=== PATIENT | female | born 1995 | race Caucasian/White ===

== ENCOUNTER 2020-02-02 15:25 | Emergency (ER) | payer MEDICARE ==
[~2020-02-02] VITALS: Ht 165.1 cm; Wt 63.5 kg
[2020-02-02] MEDS ORDERED: SODIUM CHLORIDE 0.9% 1000ML 1,000 ML IV ONE (16:23)
[2020-02-02] MEDS ORDERED: SODIUM CHLORIDE FLUSH 10 ML SYR INJ PRN (16:30)
[2020-02-02] MEDS ORDERED: SODIUM CHLORIDE 0.9% 1000ML 1,000 ML ONE (16:47)
--- NOTE | 2020-02-02 17:32 | Emergency Department Note ---
History of Present Illnes History of Present Illness Chief Complaint: typical migraine agarwal History of Present Illness This is a 24 year old female. was doing well prior to this. . 6wks preg by ultrasound Historian: Patient Arrival Mode: Car History limited by: condition of the patient (normal) Cardiovascular Technologist Required: No Onset (how long ago): week(s) (1) Location: generalize Quality: sharp Radiation: Reports non-radiation Severity: severe Onset quality: gradual Duration (how long): week(s) (1) Timing of current episode: constant Progression: unchanged Chronicity: recurrent Relieving factors: none Exacerbating factors: none Associated symptoms: Reports nausea/vomiting Treatments prior to arrival: none Past Medical/Family History Physician Review I have reviewed the patient's past medical and family history. Any updates have been documented here. Past Medical History Recent Fever: No Clinical Suspicion of Infectio: No New/Unexplained Change in Ment: No Past Medical History: None Past Surgical History: None Social History Smoking Cessation: Never Smoker Counseling Performed: No Any Illegal Drug Use: No TB Exposure/Symptoms: No Physically hurt or threatened: No Family History Family history of heart diseas: No Other Any Pre-Existing Lines (PICC,: No Is patient up to date on immun: No Review of Systems Review of Systems Constitutional: Reports no symptoms EENTM: Reports no symptoms Cardiovascular: Reports no symptoms Respiratory: Reports no symptoms Gastrointestinal: Reports as per HPI Genitourinary: Reports no symptoms Musculoskeletal: Reports no symptoms Integumentary: Reports no symptoms Neurological: Reports as per HPI Psychological: Reports no symptoms Endocrine: Reports no symptoms Hematological/Lymphatic: Reports no symptoms Review of other systems: All other systems negative Physical Exam Related Data Allergies: Coded Allergies: No Known Allergies (Unverified , 02/02/20) Vital signs reviewed: Yes Physical Exam CONSTITUTIONAL Constitutional: Present well-developed, Present well-nourished HENT HENT: Present normocephalic, Present atraumatic, Present oropharynx clear/moist, Present nose normal HENT L/R: Present left ext ear normal, Present right ext ear normal EYES Eyes: Reports PERRL, Reports conjunctivae normal NECK Neck: Present ROM normal, Present supple PULMONARY Pulmonary: Present effort normal, Present breath sounds normal CARDIOVASCULAR Cardiovascular: Present regular rhythm, Present heart sounds normal, Present capillary refill normal, Present normal rate GASTROINTESTINAL Abdominal: Present soft, Present nontender, Present bowel sounds normal GENITOURINARY Genitourinary: Present exam deferred SKIN Skin: Present warm, Present dry MUSCULOSKELETAL Musculoskeletal: Present ROM normal NEUROLOGICAL Neurological: Present alert, Present oriented x 3, Present no gross motor or sensory deficits, Present other ([id number] normal) PSYCHOLOGICAL Psychological: Present mood/affect normal, Present judgement normal Results Laboratory Lab results reviewed: Yes (cbc/bmp/lft normal, +ua=sp grav greater than 1.03) Assessment & Plan Medical Decision Making MDM see below Assessment & Plan Final Impression: (1) Migraine (2) Dehydration Depart Disposition: HOME, SELF-CARE Medications in the ED Sodium Chloride 10 ml PRN PRN INJ IV SITE FLUSH; Start 02/02/20 at 16:30; Stop 03/03/20 at 16:29 Sodium Chloride 1,000 ml @ 1,000 mls/hr Q1H ONCE IV Last administered on 1 at 16:40; Admin Dose 1,000 MLS/HR; Start 02/02/20 at 16:23; Stop 02/02/20 at 17:22; Status DC Sodium Chloride 1,000 ml @ STK-MED ONCE .ROUTE ; Start 02/02/20 at 16:47; Stop 02/02/20 at 16:40; Status DC RICARDO NEW Feb 02, 2020 17:31
[2020-02-02 18:19] VITALS: BP 113/58
--- OUTSIDE RECORDS SUMMARY | 2020-02-08 18:07 | XMS REPORT | Continuity of Care Document ---
Author Author [facility] t Organization [facility] Address [address] [place] [address] [address] [place] [address] Phone Unavailable Care Team Providers Care Mortgage Protection Sales Name Role Phone Unavailable Unavailable Payers Payer Name Policy Type Policy Number Effective Date Expiration Date S ource Problems Condition Name Condition Details Condition Category Status Onset Date Resolution Date Last Treatment Date Treating Clinician Comments Source Panic disorder Damein c disorder Active Problem 12/16/2019 [facility] Problem Active 2019-12-16 02:45:31 [facility] Silvestre Major depressive disorder, Recurrent episode, Moderate Major depressive disorder, Recurrent episode, Moderate Active Problem 12/16/2019 [facility] Problem Active 2019-12-16 02:45:31 [facility] Allergies, Adverse Reactions, Alerts Allergy Name Allergy Type Status Severity Reaction(s) Onset Date Inacti ve Date Treating Clinician Comments Source N.K.D.A. N.K.D.A. Active Info Not Available 2019-11-20 00:00:00 [facility] No Known Allergies DA Active U 2018-03-22 00:00:00 [facility] Medications Ordered Medication Name Filled Medication Name Start Date Stop Da te Current Medication? Ordering Clinician Indication Dosage Frequency Signature (SIG) Comments Components Source Citalopram Hydrobromide 2019-12-16 02:45:31 Yes Jina Moore 1 tablet [facility] Lorazepam 2019-12-16 02:45:31 Yes Jina Moore 1 tablet as needed for panic [facility] Citalopram Hydrobromide 2019-12-16 02:45:29 Yes Jina Moore 1 1/2 tablets [facility] Lorazepam 2019-07-20 00:00:00 Yes Jina Moore 1 tablet as needed for panic [facility] Vital Signs Vital Name Observation Time Observation Value Comments Source Weight 2019-11-20 17:45:00 [facility] Weight 2019-10-23 19:45:00 [facility] Weight 2019-09-22 21:15:00 [facility] Weight 2019-08-22 17:15:00 [facility] Weight 2019-08-08 20:45:00 [facility] Procedures This patient has no known procedures. Encounters Start Date/Time End Date/Time [facility] ID Source 2019-11-20 12:45:00 2019-11-20 12:45:00 Outpatient CARLOS HOOD [id number] [employer] 2019-10-23 14:45:00 2019-10-23 14:45:00 Outpatient CARLOS ALANIS MD [place] [id number] [employer] 2019-09-22 16:15:00 2019-09-22 16:15:00 Outpatient CARLOS ALANIS MD [place] [id number] [employer] 2019-08-22 12:15:00 2019-08-22 12:15:00 Outpatient CARLOS HOOD [id number] [employer] 2019-08-08 15:45:00 2019-08-08 15:45:00 Outpatient CARLOS HOOD [id number] [employer] 2019-07-20 14:30:00 2019-07-20 14:30:00 Outpatient CARLOS ALANIS MD [place] [id number] [employer] Results This patient has no known results.
--- OUTSIDE RECORDS SUMMARY | 2020-02-08 18:07 | XMS REPORT | Continuity of Care Document ---
Author Author [employer] Organization [employer] Address Unknown Phone Unavailable Care Team Providers Care Oim Consultant Name Role Phone [employer] Unavailable Un available Problems Problem Status Onset Date Classification Date Reported Comments Source Panic disorder Active Problem 12/16/2019 [facility] Major depressive disorder, Recurrent episode, Moderate Active Problem 12/16/2019 [facility] Medications Medication Details Route Status Patient Instructions Ordering Provider Order Date Source Lorazepam 1 tablet as needed f or panic Orally Active 0.5 MG Orally Once a day [place] 07/20/2019 [facility] Citalopram Hydrobromide 1 tabl et Orally Active 20 MG Orally Once a day [facility] Lorazepam 1 tablet as needed f or panic Orally Active 0.5 MG Orally Once a day [facility] Citalopram Hydrobromide 1 1/2 tablets Orally Active 10 MG Orally Once a day [facility] Allergies, Adverse Reactions, Alerts Substance Category Reaction Severity Reaction type Status Date Reported Comments Source N.K.D.A. Adverse Reaction Info Not Available Adverse Reaction 11/20/2019 [facility] Immunizations No Data Provided for This Section Results No Data Provided for This Section Pathology Reports No Data Provided for This Section Diagnostic Reports No Data Provided for This Section Consultation Notes No Data Provided for This Section Discharge Summaries No Data Provided for This Section History and Physicals No Data Provided for This Section Vital Signs Vital Sign Value Date Comments Source Weight 140 11/20/2019 [facility] Weight 135 10/23/2019 [facility] Weight 135 09/22/2019 [facility] Weight 135 08/22/2019 [facility] Weight 135 08/08/2019 [facility] Encounters No Data Provided for This Section Procedures No Data Provided for This Section Assessment and Plan No Data Provided for This Section Plan of Care No Data Provided for This Section Social History No Data Provided for This Section Family History No Data Provided for This Section Advance Directives No Data Provided for This Section Functional Status No Data Provided for This Section
== END 2020-02-02 17:53 | disposition home or self-care (01) ==
LOC: FSED 15:44
DX: O26.91 Pregnancy related conditions, unspecified, first trimester (principal); G43.909 Migraine, unspecified, not intractable, without status migrainosus; E86.0 Dehydration
CPT/HCPCS: 80053; 81003; 81025; 85025; 99284; J7030

== ENCOUNTER 2020-04-02 12:42 | Emergency (ER) | payer OTHER, MEDICARE ==
[~2020-04-02] VITALS: Ht 167.6 cm; Wt 71.3 kg
[2020-04-02 14:11] VITALS: BP 108/55
== END 2020-04-02 14:09 | disposition home or self-care (01) ==
LOC: FSED 13:00
DX: O99.340 Other mental disorders complicating pregnancy, unspecified trimester (principal); F41.9 Anxiety disorder, unspecified; R07.89 Other chest pain
CPT/HCPCS: 80053; 82553; 84484; 85025; 93005; 99284

== ENCOUNTER 2020-05-11 17:40 | Emergency (ER) | payer MEDICARE, OTHER ==
[~2020-05-11] VITALS: Ht 167.6 cm; Wt 77.6 kg
[2020-05-11] MEDS ORDERED: CELEXA10 MG PO (18:04)
[2020-05-11] MEDS ORDERED: PRENATABS RX T1 EACH (18:04)
[2020-05-11] MEDS ORDERED: SODIUM CHLORIDE 0.9% 1000ML 1,000 ML ONE (18:26)
[2020-05-11] MEDS ORDERED: SODIUM CHLORIDE 0.9% 1000ML 1,000 ML IV SCH (18:30)
[2020-05-11] MEDS ORDERED: POTASSIUM CHLORIDE 20 MEQ TAB CR PO ONE (18:59)
[2020-05-13] MEDS ORDERED: POTASSIUM CHLORIDE 20 MEQ TAB CR PO STA (09:50)
== END 2020-05-11 19:46 | disposition home or self-care (01) ==
LOC: FSED 18:22
DX: O26.892 Other specified pregnancy related conditions, second trimester (principal); O99.012 Anemia complicating pregnancy, second trimester; R10.30 Lower abdominal pain, unspecified; W18.11XA Fall from or off toilet without subsequent striking against object, initial encounter; Y92.002 Bathroom of unspecified non-institutional (private) residence as the place of occurrence of the external cause; F41.9 Anxiety disorder, unspecified; G43.909 Migraine, unspecified, not intractable, without status migrainosus
CPT/HCPCS: 80053; 81003; 81025; 85025; 99283; J7030

== ENCOUNTER 2020-09-24 21:18 | Emergency (ER) | payer OTHER ==
[~2020-09-24] VITALS: Ht 165.1 cm; Wt 74.8 kg
[~2020-09-24 21:18] MED LIST: CELEXA10 MG PO; PRENATABS RX T1 EACH
[2020-09-24 22:45] VITALS: BP 108/63
== END 2020-09-24 22:45 | disposition home or self-care (01) ==
LOC: FSED 21:40
DX: R07.89 Other chest pain (principal); F41.9 Anxiety disorder, unspecified
CPT/HCPCS: 71046; 80053; 84484; 85025; 85379; 93005; 99284

== ENCOUNTER 2021-08-09 21:40 | Emergency (ER) | payer OTHER ==
[~2021-08-09] VITALS: Ht 165.1 cm; Wt 73.5 kg
[2021-08-09] MEDS ORDERED: SODIUM CHLORIDE 0.9% 1000ML 1,000 ML IV STA (22:09)
[2021-08-09] MEDS ORDERED: KETOROLAC TROMETHAMINE 30 MG/ML VIAL IV ONE (22:15)
[2021-08-09] MEDS ORDERED: FAMOTIDINE 20 MG/2 ML VIAL IV ONE ×2 (22:15→22:23)
[2021-08-09] MEDS ORDERED: ONDANSETRON HCL INJ 2MG/ML 2ML 2 MG/ML VIAL IV ONE (22:15)
[2021-08-09] MEDS ORDERED: ONDANSETRON ODT4 MG PO (22:19)
[2021-08-09] MEDS ORDERED: FAMOTIDINE20 MG PO (22:19)
[2021-08-09] MEDS ORDERED: KETOROLAC TROMETHAMINE 30 MG/ML VIAL ONE (22:22)
[2021-08-09] MEDS ORDERED: ONDANSETRON HCL INJ 2MG/ML 2ML 2 MG/ML VIAL ONE (22:22)
[2021-08-09] MEDS ORDERED: SODIUM CHLORIDE 0.9% 1000ML 1,000 ML ONE (22:23)
[2021-08-09] MEDS ORDERED: POTASSIUM CHLORIDE 10MEQ EA PO ONE (22:45)
[2021-08-09] MEDS ORDERED: POTASSIUM CHLORIDE 20 MEQ TAB CR PO ONE (22:46)
[2021-08-09 23:10] VITALS: BP 116/72
== END 2021-08-09 23:10 | disposition home or self-care (01) ==
LOC: FSED 22:02
DX: R11.2 Nausea with vomiting, unspecified (principal); K52.9 Noninfective gastroenteritis and colitis, unspecified; R10.9 Unspecified abdominal pain; F41.9 Anxiety disorder, unspecified
CPT/HCPCS: 74022; 80048; 81003; 81025; 85025; 96374; 96375; 96376; 99284; J1885; J2405; J7030

== ENCOUNTER 2022-02-25 20:51 | Emergency (ER) | payer OTHER ==
[~2022-02-25] VITALS: Ht 165.1 cm; Wt 68.0 kg
[~2022-02-25 20:51] MED LIST changes: +FAMOTIDINE20 MG PO; +ONDANSETRON ODT4 MG PO
[2022-02-25] MEDS ORDERED: DEXAMETHASONE SOD PHOS INJ 4 MG/ML SDV IM ONE (21:15)
[2022-02-25] MEDS ORDERED: IBUPROFEN 600 MG TAB PO ONE (21:15)
[2022-02-25] MEDS ORDERED: IBUPROFEN200 MG PO (21:18)
[2022-02-25] MEDS ORDERED: CEFDINIR300 MG PO (21:18)
[2022-02-25] MEDS ORDERED: ACETAMINOPHEN500 MG PO (21:18)
[2022-02-25] MEDS ORDERED: DEXAMETHASONE SOD PHOS INJ 4 MG/ML SDV ONE (21:23)
[2022-02-25] MEDS ORDERED: IBUPROFEN 600 MG TAB ONE (21:23)
== END 2022-02-25 21:15 | disposition home or self-care (01) ==
LOC: FSED 20:57
DX: J03.90 Acute tonsillitis, unspecified (principal)
CPT/HCPCS: 99283; J1100

== ENCOUNTER 2022-06-22 22:03 | Emergency (ER) | payer OTHER ==
[~2022-06-22] VITALS: Ht 165.1 cm; Wt 73.9 kg
[~2022-06-22 22:03] MED LIST changes: +ACETAMINOPHEN500 MG PO; +CEFDINIR300 MG PO; +IBUPROFEN200 MG PO
[2022-06-22] MEDS ORDERED: AUGMENTIN 500-1 EACH PO (23:36)
[2022-06-22] MEDS ORDERED: DEXAMETHASONE SOD PHOS INJ 4 MG/ML SDV IM ONE (23:45)
[2022-06-22] MEDS ORDERED: CEFTRIAXONE 1 GM VIAL IM ONE (23:45)
[2022-06-22] MEDS ORDERED: CEFTRIAXONE 1 GM VIAL ONE (23:52)
[2022-06-22] MEDS ORDERED: DEXAMETHASONE SOD PHOS INJ 4 MG/ML SDV ONE (23:52)
[2022-06-22] MEDS ORDERED: LIDOCAINE 1% 10 ML MULTIDOSE VIAL IJ ONE (23:54)
== END 2022-06-23 00:10 | disposition home or self-care (01) ==
LOC: FSED 22:56
DX: J02.0 Streptococcal pharyngitis (principal); F41.9 Anxiety disorder, unspecified
CPT/HCPCS: 83518; 87400; 99283; J0696; J1100